=== PATIENT | male | born 1955 | race Caucasian/White ===

== ENCOUNTER 2023-03-23 12:04 | Emergency (ER) | payer MEDICARE, MEDICAID ==
[~2023-03-23] VITALS: Ht 175.3 cm; Wt 82.0 kg
[~2023-03-23 12:04] MED LIST: DOCU-138; LORA2TAB95; MEL10; OMEP20CA4; PROP20TA19; PSYL3.4P6; QUET100T; TRAZADONE
[2023-03-23 12:06] VITALS: O2SAT 98
[2023-03-23] MEDS ORDERED: HALOPERIDOL 5MG TABLET PO ONE (12:45)
[2023-03-23] MEDS ORDERED: DIAZEPAM 2 MG TABLET PO ONE (12:45)
[2023-03-23] MEDS: LORAZEPAM 2MG/ML CPJ IM PRN ×2 (15:15→16:36)
[2023-03-23] MEDS: DIPHENHYDRAMINE 50MG/ML VIAL IM PRN ×2 (15:15→16:36)
[2023-03-23] MEDS ORDERED: CHLORPROMAZINE HCL 25MG/1ML AMP IM ONE (16:15)
[2023-03-23 18:39] LABS: BASOPHILS % 0.4 % (0.0-2.0); EOSINOPHILS % 1.5 % (0.0-5.0); HEMATOCRIT. 43.8 % (42.0-52.0); HEMOGLOBIN. 14.5 g/dL (14.0-18.0); LYMPHOCYTES % 22.2 % (20.0-50.0); MEAN CORPUSCULAR HEMOGLOBIN 29.6 pg (28.0-32.0); MEAN CORPUSCULAR HGB CONC 33.1 g/dL (31.0-37.0); MEAN CORPUSCULAR VOLUME 89.3 fL (80.0-94.0); MEAN PLATELET VOLUME 7.4 fl (7.4-10.4); MONOCYTES % 14.9 % (2.0-8.0); PLATELET 228 x1000/uL (130-400); RED CELL DISTRIBUTION WIDTH 12.9 % (11.6-14.6); WHITE BLOOD COUNT 6.4 x1000/uL (4.5-11.0)
[2023-03-23 18:57] LABS: CHLORIDE 98 mEq/L (98-107); INDEX HEMOLYSI 4 (1-3); INDEX ICTERIC 1 (1-4); INDEX LIPEMIC 1 (1-3); SODIUM 131 mEq/L (136-145)
[2023-03-23 18:58] LABS: POTASSIUM 3.6 mEq/L (3.5-5.1)
[2023-03-23 19:05] LABS: ALANINE AMINOTRANSFERASE 21 IU/L (13-61); ALBUMIN 3.7 g/dL (3.4-5.0); ASPARTATE AMINOTRANSFERASE 37 IU/L (15-37); BILIRUBIN TOTAL 0.8 mg/dL (0.1-1.0); CALCIUM 8.8 mg/dL (8.5-10.1); CARBON DIOXIDE 26 mEq/L (21-32); CREATININE 0.8 mg/dL (0.6-1.3); GLUCOSE 89 mg/dL (70-105); PROTEIN TOTAL 7.4 g/dL (6.0-8.3); TROPONIN I HIGH SENSITIVITY 6 ng/L (<78); UREA NITROGEN BLOOD 9 mg/dL (7-21)
[2023-03-23 19:19] LABS: CLARITY URINE CLEAR (CLEAR); COLOR URINE YELLOW (YELLOW); GLUCOSE URINE NEGATIVE (NEGATIVE); KETONES URINE NEGATIVE (NEGATIVE); LEUKOCYTE ESTERASE URINE NEGATIVE (NEGATIVE); NITRITE URINE NEGATIVE (NEGATIVE); OCCULT BLOOD URINE NEGATIVE (NEGATIVE); PROTEIN URINE NEGATIVE (NEGATIVE); SPECIFIC GRAVITY URINE 1.005 (1.005-1.030)
[2023-03-23] MEDS ORDERED: MIDAZOLAM HCL 2 MG/2 ML VIAL IV ONE (21:30)
[2023-03-23 21:46] LABS: PROTHROMBIN TIME 10.9 sec (9.6-11.0)
[2023-03-23 21:54] LABS: RAPID HIV SCREEN NEGATIVE (NEGATIVE)
[2023-03-24] MEDS ORDERED: MIDAZOLAM HCL 2 MG/2 ML VIAL IV ONE
[2023-03-24 00:30] VITALS: TEMP 98.9
[2023-03-24] MEDS ORDERED: POLY119P2 MT (03:05)
[2023-03-24] MEDS ORDERED: ACET-2708 MT (03:05)
[2023-03-24] MEDS ORDERED: IOHEXOL-300 100 ML BOTTLE ONE (03:35)
[2023-03-24 08:00] VITALS: BP 129/80; PULSE 86; RESP 14
[2023-03-24 17:15] LABS: HEPATITIS B SURFACE ANTIGEN NEGATIVE
[2023-03-24 17:43] LABS: HEPATITIS C VIR.AB 0.14 INDEXVAL (0.00-0.80)
[2023-03-24 17:44] LABS: HEPATITIS A AB IGM NEGATIVE (NEGATIVE)
[2023-03-24 18:23] LABS: HEPATITIS B SURFACE AB 4.8 mIU/mL
[2023-03-24 19:01] LABS: HEPATITIS B CORE AB IGM NEGATIVE
[2023-03-27 06:11] LABS: *HEPATITIS B CORE ANTIBODY Negative (Negative); HIV SCREEN 4G Non Reactive (Non Reactive)
== END 2023-03-24 08:55 | disposition home or self-care (01) ==
LOC: ER 12:20
DX: R10.9 Unspecified abdominal pain (principal); Z79.899 Other long term (current) drug therapy; Z86.59 Personal history of other mental and behavioral disorders; Z98.890 Other specified postprocedural states
CPT/HCPCS: 99285; 96374; 80053; 81003; 83605; 83690; 85025; 85610; 87340; 86803; 84484; 36415; 86705; 86709; 87389; 96372; 74177; 96376; 86703; J1630; J1200; J2060; J2250 ×2; Q9967; J3230